=== PATIENT | male | born 1960 | race Caucasian/White ===

== ENCOUNTER 2017-09-25 18:22 | Emergency (ER) | payer OTHER ==
[2017-09-25] MEDS ORDERED: ALTEPLASE, RECOMBINANT 50 MG PDS IV ONE ×3 (18:40→19:14)
[2017-09-25 18:53] LABS: BASOPHILS % (AUTO) 1 % (0-3); EOSINOPHILS % (AUTO) 3 % (0-9); HEMATOCRIT 46 % (39-53); MEAN CORPUSCULAR HGB CONC 33.5 gm/dl (32.0-36.0); MEAN CORPUSCULAR VOLUME 96 fL (80-100); MONOCYTES % (AUTO) 8.3 % (0-12); NEUTROPHILS % (AUTO) 70.1 % (37-80)
[2017-09-25 18:57] VITALS: PULSE 80; RESP 18; TEMP 99.1; O2SAT 97
[2017-09-25] MEDS ORDERED: LORAZEPAM 2 MG/ML SOL ONE (19:03)
[2017-09-25 19:04] LABS: ALBUMIN 3.7 gm/dl (3.4-5.0); ALT 30 IU/L (14-63); CALCIUM 9.1 mg/dl (8.5-10.1); GLOM FILT RATE 44 mL/min (>60); SODIUM 141 mMol/L (136-145)
[2017-09-25] MEDS ORDERED: LORAZEPAM 2 MG/ML SOL IV ONE (19:07)
[2017-09-25] MEDS ORDERED: SODIUM CHLORIDE 0.9% FLUSH 10 ML SOL IV PRN ×2 (19:10→19:14)
[2017-09-25 19:34] VITALS: BP 182/80
== END 2017-09-25 19:07 | disposition short-term general hospital (02) ==
LOC: ED 18:22
DX: I63.9 Cerebral infarction, unspecified (principal); R40.2362 Coma scale, best motor response, obeys commands, at arrival to emergency department; R40.2142 Coma scale, eyes open, spontaneous, at arrival to emergency department; R40.2252 Coma scale, best verbal response, oriented, at arrival to emergency department; R29.702 NIHSS score 2; R47.81 Slurred speech
CPT/HCPCS: 36415; 70450; 80053; 84484; 85025; 93005; 96374; 99291; J2060; J2997